=== PATIENT | female | born 1965 | race Caucasian/White ===

== ENCOUNTER 2015-12-08 17:25 | Outpatient (RCR) | payer BC ==
[2015-12-08 18:09] VITALS: BP 141/66
[2015-12-08] MEDS ORDERED: COPAXONE40 MG/ML SC (18:37)
[2015-12-08] MEDS ORDERED: CYANOCOBAL1000 MCG/M IM (18:37)
[2015-12-08] MEDS ORDERED: ATENOLOL50 MG PO (18:38)
[2015-12-08] MEDS ORDERED: MELOXICAM15 MG PO (18:39)
[2015-12-08] MEDS ORDERED: HCTZ/TRIAMTEREN1 CA2 PO (18:39)
[2015-12-08] MEDS ORDERED: VENLAFAXINE HYD75 MG PO (18:39)
[2015-12-08] MEDS ORDERED: SERTRALINE HYD100 MG PO (18:39)
[2015-12-08] MEDS ORDERED: TOLTERODINE TART4 MG PO (18:40)
[2015-12-08] MEDS ORDERED: NEURONTIN300 MG/CAP PO (18:40)
[2015-12-08] MEDS ORDERED: MAG-OX 400400 MG/TAB PO (18:42)
[2015-12-08] MEDS ORDERED: SV CALCIUM-MAG1 EACH PO (18:42)
[2015-12-08 20:36] VITALS: BP 137/75
[2015-12-09 17:39] VITALS: BP 151/85
[2015-12-09 20:10] VITALS: BP 141/56
[2015-12-10 14:58] VITALS: BP 135/82
[2015-12-10 17:06] VITALS: BP 126/66
== END 2016-03-07 | disposition home or self-care (01) ==
LOC: AMSURD
DX: G35 Multiple sclerosis (principal)
CPT/HCPCS: J2930; J7050

== ENCOUNTER → 2017-02-07 | Outpatient (CLI) | payer BC ==
[~2017-02-07] MED LIST: ATENOLOL50 MG PO; COPAXONE40 MG/ML SC; CYANOCOBAL1000 MCG/M IM; HCTZ/TRIAMTEREN1 CA2 PO; MAG-OX 400400 MG/TAB PO; MELOXICAM15 MG PO; NEURONTIN300 MG/CAP PO; SERTRALINE HYD100 MG PO; SV CALCIUM-MAG1 EACH PO; TOLTERODINE TART4 MG PO; VENLAFAXINE HYD75 MG PO
[2017-02-07 13:34] LABS: HEMATOCRIT 38.9 % (37.0-47.0); RED BLOOD COUNT 4.5 M/mm3 (4.10-5.30); RED CELL DISTRIBUTION WIDTH 13.2 % (11.5-14.5); WHITE BLOOD COUNT 10.4 K/mm3 (4.8-10.8)
[2017-02-07 13:53] LABS: ALBUMIN 3.9 g/dL (3.5-5.0); BUN/CREATININE RATIO 13.8 (6.0-26.0); CALCIUM 9.7 mg/dL (8.4-10.2); POTASSIUM 3.9 mmol/L (3.6-5.0); TOTAL BILIRUBIN 0.6 mg/dL (0.2-1.3); TOTAL PROTEIN 6.9 g/dL (6.3-8.2)
[2017-02-07 14:23] LABS: URINE APPEARANCE HAZY; URINE COLOR YELLOW
[2017-02-07 14:24] LABS: URINE BILIRUBIN NEGATIVE (NEGATIVE); URINE BLOOD NEGATIVE (NEGATIVE); URINE GLUCOSE NEGATIVE (NEGATIVE); URINE KETONE NEGATIVE (NEGATIVE); URINE LEUKOCYTE ESTERASE NEGATIVE (NEGATIVE); URINE NITRATE NEGATIVE (NEGATIVE); URINE PROTEIN(semi-quant) NEGATIVE (NEGATIVE); URINE UROBILINOGEN NORMAL (NORMAL); URINE WBC 0-1 /hpf (0-3)
== END ==
LOC: RAD 13:12
DX: Z85.820 Personal history of malignant melanoma of skin (principal)

== ENCOUNTER → 2017-02-16 | Outpatient (CLI) | payer BC ==
[2017-02-16 12:51] LABS: BUN/CREATININE RATIO 15.8 (6.0-26.0); CALCIUM 9.5 mg/dL (8.4-10.2)
[2017-02-16 13:07] LABS: PH-URINE 5.5 (5.0 - 8.0); URINE APPEARANCE CLEAR; URINE COLOR YELLOW
[2017-02-16 13:08] LABS: URINE BILIRUBIN NEGATIVE (NEGATIVE); URINE BLOOD TRACE (NEGATIVE); URINE GLUCOSE NEGATIVE (NEGATIVE); URINE KETONE NEGATIVE (NEGATIVE); URINE LEUKOCYTE ESTERASE NEGATIVE (NEGATIVE); URINE NITRATE NEGATIVE (NEGATIVE); URINE PROTEIN(semi-quant) NEGATIVE (NEGATIVE); URINE UROBILINOGEN NORMAL (NORMAL); URINE WBC 0-1 /hpf (0-3)
[2017-02-16 23:59] LABS: CREATININE OTHER SOURCE 116 mg/dL (())
== END ==
LOC: LAB 12:19
PROVIDERS: Family Medicine
DX: R35.8 Other polyuria (principal); J01.90 Acute sinusitis, unspecified; I10 Essential (primary) hypertension; R89.9 Unspecified abnormal finding in specimens from other organs, systems and tissues; C43.9 Malignant melanoma of skin, unspecified

== ENCOUNTER → 2017-03-19 | Outpatient (CLI) | payer BC ==
[2017-03-19 09:08] LABS: STREP SCREEN NEGATIVE (NEGATIVE)
== END ==
LOC: LAB 08:40
PROVIDERS: Nurse Practitioner Family
DX: R05 Cough (principal); J02.8 Acute pharyngitis due to other specified organisms; Z88.1 Allergy status to other antibiotic agents

== ENCOUNTER 2017-04-04 09:55 | Emergency (ER) | payer BC ==
[~2017-04-04] VITALS: Ht 180.3 cm; Wt 102.3 kg
[2017-04-04 10:30] LABS: BASO # 0.1 (0.02-0.10); EOS # 0.6 (0.04-0.40); HEMATOCRIT 43.6 % (37.0-47.0); HEMOGLOBIN 14.4 g/dL (12.5-16.0); LYMPH# 2.5 (1.50-4.00); MEAN CELL VOLUME 87 fl (78-100); MEAN CORPUSCULAR HEMOGLOBIN 29 pg (27-31); MEAN CORPUSCULAR HGB CONC 33 g/dL (33-37); MEAN PLATELET VOLUME 10.1 fl (7.4-10.4); MONO # 1.3 (0.20-0.80); NEU # 9.6 (1.40-6.50); PLATELET COUNT 374 K/mm3 (130-400); RED BLOOD COUNT 5.03 M/mm3 (4.10-5.30); RED CELL DISTRIBUTION WIDTH 13.3 % (11.5-14.5); WHITE BLOOD COUNT 14.1 K/mm3 (4.8-10.8)
[2017-04-04 10:31] LABS: ALBUMIN 4.3 g/dL (3.5-5.0); BUN/CREATININE RATIO 13.3 (6.0-26.0); CALCIUM 9.7 mg/dL (8.4-10.2); POTASSIUM 3.9 mmol/L (3.6-5.0); TOTAL BILIRUBIN 0.6 mg/dL (0.2-1.3)
[2017-04-04 10:38] LABS: PH-URINE 6.5 (5.0 - 8.0); TOTAL PROTEIN 7.6 g/dL (6.3-8.2); URINE APPEARANCE HAZY; URINE BILIRUBIN NEGATIVE (NEGATIVE); URINE BLOOD NEGATIVE (NEGATIVE); URINE COLOR YELLOW; URINE GLUCOSE NEGATIVE (NEGATIVE); URINE KETONE NEGATIVE (NEGATIVE); URINE LEUKOCYTE ESTERASE NEGATIVE (NEGATIVE); URINE NITRATE NEGATIVE (NEGATIVE); URINE PROTEIN(semi-quant) NEGATIVE (NEGATIVE); URINE UROBILINOGEN NORMAL (NORMAL)
[2017-04-04 10:39] LABS: URINE MUCUS PRESENT (NOT PRESENT)
[2017-04-04] MEDS ORDERED: MELOXICAM15 MG PO (10:45)
[2017-04-04] MEDS ORDERED: MAXZIDE-25MG TA1 TAB PO (10:45)
[2017-04-04] MEDS ORDERED: ESTRADIOL2 M1 PO (10:45)
[2017-04-04] MEDS ORDERED: ROBAXIN500 MG PO (12:12)
[2017-04-04] MEDS ORDERED: NORCO 325 MG-51 TA1 PO (12:12)
[2017-04-04 12:24] VITALS: BP 171/77
== END 2017-04-04 12:20 | disposition home or self-care (01) ==
LOC: ED 09:55
PROVIDERS: Physician Assistant
DX: R10.12 Left upper quadrant pain (principal); G35 Multiple sclerosis; M54.6 Pain in thoracic spine; I10 Essential (primary) hypertension; Z85.820 Personal history of malignant melanoma of skin; Z87.442 Personal history of urinary calculi; Z90.49 Acquired absence of other specified parts of digestive tract; E66.9 Obesity, unspecified; Z68.31 Body mass index [BMI] 31.0-31.9, adult
CPT/HCPCS: J1885; J2405; J3010; J7030; Q9967

== ENCOUNTER → 2017-10-24 | Outpatient (CLI) | payer OTHER ==
[~2017-10-24] MED LIST changes: +ESTRADIOL2 M1 PO; +MAXZIDE-25MG TA1 TAB PO; +NORCO 325 MG-51 TA1 PO; +ROBAXIN500 MG PO
== END ==
LOC: MAMMO 15:58
DX: Z12.31 Encounter for screening mammogram for malignant neoplasm of breast (principal)

== ENCOUNTER → 2017-11-12 | Outpatient (CLI) | payer OTHER | LOC: MAMMO 06:57 | DX: N60.02 Solitary cyst of left breast (principal); Z98.890 Other specified postprocedural states ==

== ENCOUNTER → 2018-08-21 | Outpatient (CLI) | payer BC ==
[2018-08-21 10:39] LABS: HEMATOCRIT 43.1 % (37.0-47.0); HEMOGLOBIN 14.2 g/dL (12.5-16.0); RED BLOOD COUNT 5.03 M/mm3 (4.10-5.30); RED CELL DISTRIBUTION WIDTH 12.8 % (11.5-14.5); WHITE BLOOD COUNT 12.1 K/mm3 (4.8-10.8)
[2018-08-21 10:48] LABS: POTASSIUM 3.7 mmol/L (3.5-5.1); SODIUM 140 mmol/L (136-145)
[2018-08-21 10:49] LABS: CALCIUM 9.7 mg/dL (8.3-10.5)
[2018-08-21 10:50] LABS: GLUCOSE 132 mg/dL (65-105); TOTAL PROTEIN 7.3 g/dL (6.4-8.3)
[2018-08-21 10:51] LABS: CARBON DIOXIDE 27 mmol/L (22-29)
[2018-08-21 10:52] LABS: TOTAL BILIRUBIN 0.5 mg/dL (0.2-1.2)
[2018-08-21 10:55] LABS: AST-SGOT 13 U/L (5-34)
[2018-08-21 10:57] LABS: ALT/SGPT 20 U/L (0-55)
== END ==
LOC: LAB 10:21
PROVIDERS: Psychiatry & Neurology Neurology
DX: G35 Multiple sclerosis (principal); E55.9 Vitamin D deficiency, unspecified; G89.29 Other chronic pain; M26.69 Other specified disorders of temporomandibular joint

== ENCOUNTER → 2018-09-30 | Outpatient (CLI) | payer BC | LOC: MAMMO 09-25 16:00 | DX: Z12.31 Encounter for screening mammogram for malignant neoplasm of breast (principal); R92.1 Mammographic calcification found on diagnostic imaging of breast ==

== ENCOUNTER → 2018-11-27 | Outpatient (CLI) | payer BC ==
[2018-11-27 15:30] LABS: POTASSIUM 3.6 mmol/L (3.5-5.1)
[2018-11-27 15:31] LABS: CALCIUM 9.5 mg/dL (8.3-10.5)
[2018-11-27 15:35] LABS: TOTAL BILIRUBIN 0.8 mg/dL (0.2-1.2)
== END ==
LOC: LAB 14:57
PROVIDERS: Family Medicine
DX: Z00.00 Encounter for general adult medical examination without abnormal findings (principal); Z13.6 Encounter for screening for cardiovascular disorders; S91.101A Unspecified open wound of right great toe without damage to nail, initial encounter; G35 Multiple sclerosis; I10 Essential (primary) hypertension; R73.9 Hyperglycemia, unspecified; K29.70 Gastritis, unspecified, without bleeding; L97.519 Non-pressure chronic ulcer of other part of right foot with unspecified severity; M21.611 Bunion of right foot; C43.9 Malignant melanoma of skin, unspecified; R60.0 Localized edema

== ENCOUNTER → 2019-02-13 | Outpatient (CLI) | payer BC ==
[2019-02-13 19:35] LABS: BASO # 0.1 (0.02-0.10); EOS # 0.3 (0.04-0.40); HEMATOCRIT 41.2 % (37.0-47.0); HEMOGLOBIN 13.6 g/dL (12.5-16.0); LYMPH# 2.1 (1.50-4.00); MEAN CELL VOLUME 88 fl (78-100); MEAN CORPUSCULAR HEMOGLOBIN 29 pg (27-31); MEAN CORPUSCULAR HGB CONC 33 g/dL (33-37); MEAN PLATELET VOLUME 10.1 fl (7.4-10.4); NEU # 6.8 (1.40-6.50); PLATELET COUNT 306 K/mm3 (130-400); RED BLOOD COUNT 4.67 M/mm3 (4.10-5.30); RED CELL DISTRIBUTION WIDTH 12.8 % (11.5-14.5); WHITE BLOOD COUNT 10.4 K/mm3 (4.8-10.8)
[2019-02-13 19:45] LABS: POTASSIUM 3.2 mmol/L (3.5-5.1)
[2019-02-13 19:46] LABS: CALCIUM 9.6 mg/dL (8.3-10.5)
[2019-02-13 19:48] LABS: TOTAL PROTEIN 7.3 g/dL (6.4-8.3)
[2019-02-13 19:49] LABS: TOTAL BILIRUBIN 0.4 mg/dL (0.2-1.2)
== END | disposition still patient (30) ==
LOC: LAB 19:18
PROVIDERS: Nurse Practitioner
DX: L08.9 Local infection of the skin and subcutaneous tissue, unspecified (principal)

== ENCOUNTER → 2019-05-27 | Outpatient (CLI) | payer BC | LOC: LAB 17:17 | DX: I10 Essential (primary) hypertension (principal); G35 Multiple sclerosis; E66.9 Obesity, unspecified; R19.7 Diarrhea, unspecified ==

== ENCOUNTER 2019-09-24 14:14 | Inpatient (IN) | payer BC ==
[~2019-09-24] VITALS: Ht 177.8 cm; Wt 109.1 kg
[2019-09-24] MEDS ORDERED: SIMVASTATIN10 M1 PO (14:42)
[2019-09-24] MEDS ORDERED: AUBAGIO14 MG PO (14:44)
[2019-09-24] MEDS ORDERED: TOLTERODINE TART4 MG PO (14:44)
[2019-09-24] MEDS ORDERED: NEURONTIN300 M1 PO (14:45)
[2019-09-24] MEDS ORDERED: MUPIROCIN CALCIUM2% TP (14:47)
[2019-09-24 15:25] LABS: BASO # 0.1 (0.02-0.10); EOS # 0.2 (0.04-0.40); HEMATOCRIT 40.2 % (37.0-47.0); HEMOGLOBIN 13.2 g/dL (12.5-16.0); LYMPH# 2.1 (1.50-4.00); MEAN CELL VOLUME 86 fl (78-100); MEAN CORPUSCULAR HEMOGLOBIN 28 pg (27-31); MEAN CORPUSCULAR HGB CONC 33 g/dL (33-37); MONO # 1.1 (0.20-0.80); NEU # 7.5 (1.40-6.50); PLATELET COUNT 313 K/mm3 (130-400); RED BLOOD COUNT 4.67 M/mm3 (4.10-5.30); RED CELL DISTRIBUTION WIDTH 13.2 % (11.5-14.5)
[2019-09-24 15:33] LABS: URINE APPEARANCE CLEAR; URINE BILIRUBIN NEGATIVE (NEGATIVE); URINE BLOOD NEGATIVE (NEGATIVE); URINE COLOR YELLOW; URINE GLUCOSE NEGATIVE (NEGATIVE); URINE KETONE NEGATIVE (NEGATIVE); URINE LEUKOCYTE ESTERASE NEGATIVE (NEGATIVE); URINE MUCUS PRESENT (NOT PRESENT); URINE NITRATE NEGATIVE (NEGATIVE); URINE PROTEIN(semi-quant) NEGATIVE (NEGATIVE); URINE UROBILINOGEN NORMAL (NORMAL)
[2019-09-24 15:34] LABS: POTASSIUM 3.8 mmol/L (3.5-5.1); SODIUM 140 mmol/L (136-145)
[2019-09-24 15:36] LABS: CALCIUM 9.8 mg/dL (8.3-10.5)
[2019-09-24 15:37] LABS: GLUCOSE 88 mg/dL (65-105); TOTAL PROTEIN 7.3 g/dL (6.4-8.3)
[2019-09-24 15:38] LABS: CARBON DIOXIDE 26 mmol/L (22-29)
[2019-09-24 15:39] LABS: TOTAL BILIRUBIN 0.4 mg/dL (0.2-1.2)
[2019-09-24 15:42] LABS: AST-SGOT 13 U/L (5-34)
[2019-09-24 15:43] LABS: ALT/SGPT 14 U/L (0-55)
[2019-09-24 15:51] LABS: TROPONIN-I < 0.03 ng/mL (<0.030)
[2019-09-24 17:36] VITALS: BP 139/89
[2019-09-24 17:50] VITALS: BP 139/89
[2019-09-24 22:15] VITALS: BP 123/77
[2019-09-25 02:48] VITALS: BP 138/66
[2019-09-25 05:18] LABS: HEMOGLOBIN 12.9 g/dL (12.5-16.0); MEAN CELL VOLUME 85 fl (78-100); MEAN CORPUSCULAR HEMOGLOBIN 29 pg (27-31); MEAN CORPUSCULAR HGB CONC 34 g/dL (33-37); MEAN PLATELET VOLUME 10.3 fl (7.4-10.4); PLATELET COUNT 296 K/mm3 (130-400); RED BLOOD COUNT 4.47 M/mm3 (4.10-5.30); RED CELL DISTRIBUTION WIDTH 12.8 % (11.5-14.5); WHITE BLOOD COUNT 12.8 K/mm3 (4.8-10.8)
[2019-09-25 05:32] LABS: ALBUMIN 3.8 g/dL (3.5-5.0); POTASSIUM 3.9 mmol/L (3.5-5.1)
[2019-09-25 05:33] LABS: CALCIUM 9.4 mg/dL (8.3-10.5)
[2019-09-25 05:34] LABS: TOTAL PROTEIN 6.9 g/dL (6.4-8.3)
[2019-09-25 05:36] LABS: TOTAL BILIRUBIN 0.5 mg/dL (0.2-1.2)
[2019-09-25 05:38] LABS: LYMPHOCYTE 8 % (20-51); MONOCYTE 1 % (3-10); NEUTROPHILS 91 % (42-75)
[2019-09-25 05:45] VITALS: BP 138/70
[2019-09-25 09:10] LABS: D-DIMER 0.24 mg/L FEU (0.15-0.50)
[2019-09-25 09:43] VITALS: BP 120/85
[2019-09-25 14:15] VITALS: BP 130/70
[2019-09-25 17:26] VITALS: BP 147/77
[2019-09-25 21:48] VITALS: BP 144/77
[2019-09-26 02:30] VITALS: BP 156/69
[2019-09-26 06:16] VITALS: BP 168/87
[2019-09-26 09:43] VITALS: BP 160/85
[2019-09-26 09:50] LABS: POTASSIUM 4.1 mmol/L (3.5-5.1)
[2019-09-26 09:51] LABS: CALCIUM 9.3 mg/dL (8.3-10.5)
[2019-09-26 09:59] LABS: HEMATOCRIT 40.3 % (37.0-47.0); HEMOGLOBIN 13.1 g/dL (12.5-16.0); MEAN CELL VOLUME 87 fl (78-100); MEAN CORPUSCULAR HEMOGLOBIN 28 pg (27-31); MEAN CORPUSCULAR HGB CONC 33 g/dL (33-37); MEAN PLATELET VOLUME 10.5 fl (7.4-10.4); PLATELET COUNT 324 K/mm3 (130-400); RED BLOOD COUNT 4.65 M/mm3 (4.10-5.30); RED CELL DISTRIBUTION WIDTH 13.3 % (11.5-14.5)
[2019-09-26 10:00] LABS: WHITE BLOOD COUNT 23.9 K/mm3 (4.8-10.8)
[2019-09-26 11:24] LABS: LYMPHOCYTE 6 % (20-51); MONOCYTE 3 % (3-10); NEUTROPHILS 91 % (42-75)
[2019-09-26 14:33] VITALS: BP 135/73
[2019-09-26 18:24] VITALS: BP 147/81
[2019-09-26 21:07] VITALS: BP 150/84
[2019-09-27 02:07] VITALS: BP 115/57
[2019-09-27 05:59] VITALS: BP 117/56
[2019-09-27 09:09] VITALS: BP 133/83
[2019-09-27 14:08] VITALS: BP 134/85
[2019-09-27 17:26] VITALS: BP 117/65
[2019-09-27 22:42] VITALS: BP 119/71
[2019-09-28 02:00] VITALS: BP 150/75
[2019-09-28 06:06] VITALS: BP 154/78
[2019-09-28 07:23] LABS: POTASSIUM 4.4 mmol/L (3.5-5.1)
[2019-09-28 07:25] LABS: CALCIUM 8.3 mg/dL (8.3-10.5)
[2019-09-28 10:20] VITALS: BP 177/83
[2019-09-28 14:12] VITALS: BP 137/80
[2019-09-28 18:23] VITALS: BP 129/76
[2019-09-28 21:29] VITALS: BP 150/84
[2019-09-29] VITALS (7 sets, daily range): BP systolic 119–170; BP diastolic 61–90
[2019-09-29 06:40] LABS: HEMATOCRIT 41.3 % (37.0-47.0); HEMOGLOBIN 13.5 g/dL (12.5-16.0); MEAN CELL VOLUME 86 fl (78-100); MEAN CORPUSCULAR HEMOGLOBIN 28 pg (27-31); MEAN CORPUSCULAR HGB CONC 33 g/dL (33-37); MEAN PLATELET VOLUME 10.5 fl (7.4-10.4); PLATELET COUNT 334 K/mm3 (130-400); RED CELL DISTRIBUTION WIDTH 13.2 % (11.5-14.5); WHITE BLOOD COUNT 17.1 K/mm3 (4.8-10.8)
[2019-09-29 07:16] LABS: ALBUMIN 3.6 g/dL (3.5-5.0)
[2019-09-29 07:17] LABS: POTASSIUM 4.3 mmol/L (3.5-5.1)
[2019-09-29 07:19] LABS: TOTAL PROTEIN 6.5 g/dL (6.4-8.3)
[2019-09-29 07:21] LABS: NEUTROPHILS 82 % (42-75); TOTAL BILIRUBIN 0.4 mg/dL (0.2-1.2)
[2019-09-29 07:22] LABS: LYMPHOCYTE 13 % (20-51); METAMYELOCYTE 1 % (0-0); MONOCYTE 3 % (3-10); MYELOCYTE 1 % (0-0)
[2019-09-30 02:21] VITALS: BP 130/73
[2019-09-30 06:07] VITALS: BP 136/78
[2019-09-30 10:13] VITALS: BP 156/72
== END 2019-09-30 10:25 | disposition home or self-care (01) | DRG 60 ==
LOC: ED 14:14 → MED/SURG 16:12
PROVIDERS: Family Medicine; Internal Medicine; Nurse Practitioner Primary Care; ADMIT Family Medicine
DX: G35 Multiple sclerosis (principal); G62.9 Polyneuropathy, unspecified; I10 Essential (primary) hypertension; R07.9 Chest pain, unspecified; M19.90 Unspecified osteoarthritis, unspecified site; R73.9 Hyperglycemia, unspecified; N28.9 Disorder of kidney and ureter, unspecified; K44.9 Diaphragmatic hernia without obstruction or gangrene; D72.829 Elevated white blood cell count, unspecified; Z20.828 Contact with and (suspected) exposure to other viral communicable diseases; Z87.891 Personal history of nicotine dependence
CPT/HCPCS: J1200; J1650; J1815; J1885; J2405; J2550; J2930; J7030; J7050

== ENCOUNTER → 2019-10-08 | Outpatient (CLI) | payer BC ==
[2019-09-30 10:13] VITALS: BP 156/72
[~2019-10-08] MED LIST changes: +AUBAGIO14 MG PO; +MUPIROCIN CALCIUM2% TP; +NEURONTIN300 M1 PO; +SIMVASTATIN10 M1 PO
[2019-10-08 14:33] LABS: HEMATOCRIT 41.1 % (37.0-47.0); HEMOGLOBIN 13.6 g/dL (12.5-16.0); MEAN PLATELET VOLUME 9.9 fl (7.4-10.4); RED BLOOD COUNT 4.79 M/mm3 (4.10-5.30); RED CELL DISTRIBUTION WIDTH 13.7 % (11.5-14.5); WHITE BLOOD COUNT 13.3 K/mm3 (4.8-10.8)
[2019-10-08 14:45] LABS: ALBUMIN 3.9 g/dL (3.5-5.0); POTASSIUM 3.9 mmol/L (3.5-5.1)
[2019-10-08 14:46] LABS: CALCIUM 9.3 mg/dL (8.3-10.5)
[2019-10-08 14:47] LABS: TOTAL PROTEIN 6.7 g/dL (6.4-8.3)
[2019-10-08 14:49] LABS: TOTAL BILIRUBIN 0.6 mg/dL (0.2-1.2)
[2019-10-09 00:26] LABS: FOLATE (FOLIC ACID) 14.8 ng/mL (7.0-31.4)
[2019-10-13 11:39] LABS: VITAMIN E 13.7 mg/L (())
== END ==
LOC: LAB 14:00
PROVIDERS: Psychiatry & Neurology Neurology
DX: G35 Multiple sclerosis (principal); B02.9 Zoster without complications

== ENCOUNTER → 2019-10-14 | Outpatient (CLI) | payer OTHER ==
[2019-09-30 10:13] VITALS: BP 156/72
== END ==
LOC: RAD 18:35
DX: M24.874 Other specific joint derangements of right foot, not elsewhere classified (principal); M20.11 Hallux valgus (acquired), right foot

== ENCOUNTER → 2019-10-15 | Outpatient (CLI) | payer OTHER ==
[2019-09-30 10:13] VITALS: BP 156/72
[2019-10-15 10:46] LABS: EOS # 0.2 (0.04-0.40); HEMATOCRIT 38.3 % (37.0-47.0); HEMOGLOBIN 12.5 g/dL (12.5-16.0); LYMPH# 1.9 (1.50-4.00); MEAN CELL VOLUME 87 fl (78-100); MEAN CORPUSCULAR HEMOGLOBIN 29 pg (27-31); MEAN CORPUSCULAR HGB CONC 33 g/dL (33-37); MEAN PLATELET VOLUME 9.4 fl (7.4-10.4); MONO # 0.7 (0.20-0.80); PLATELET COUNT 196 K/mm3 (130-400); RED BLOOD COUNT 4.38 M/mm3 (4.10-5.30); RED CELL DISTRIBUTION WIDTH 13.7 % (11.5-14.5); WHITE BLOOD COUNT 7.8 K/mm3 (4.8-10.8)
[2019-10-15 12:05] LABS: ERYTHROCYTE SEDIMENTATION RATE 28 mm/hr (0-30)
== END ==
LOC: RAD 10:15
PROVIDERS: Family Medicine
DX: M21.611 Bunion of right foot (principal)

== ENCOUNTER → 2020-03-05 | Outpatient (CLI) | payer BC ==
[2020-03-05 11:23] LABS: BASO # 0.1 (0.02-0.10); EOS # 0.3 (0.04-0.40); EOS % 3.1 % (1.0-5.0); HEMATOCRIT 41.7 % (37.0-47.0); HEMOGLOBIN 13.7 g/dL (12.5-16.0); LYMPH# 2.7 (1.50-4.00); MEAN CELL VOLUME 87 fl (78-100); MEAN CORPUSCULAR HEMOGLOBIN 29 pg (27-31); MEAN CORPUSCULAR HGB CONC 33 g/dL (33-37); MEAN PLATELET VOLUME 9.9 fl (7.4-10.4); MONO # 1.2 (0.20-0.80); NEU # 6.7 (1.40-6.50); PLATELET COUNT 303 K/mm3 (130-400); RED BLOOD COUNT 4.81 M/mm3 (4.10-5.30); RED CELL DISTRIBUTION WIDTH 13.2 % (11.5-14.5)
[2020-03-05 11:27] LABS: PROTHROMBIN TIME 9.4 SECONDS (9.0-12.0)
[2020-03-05 11:47] LABS: URINE APPEARANCE CLOUDY; URINE BILIRUBIN NEGATIVE (NEGATIVE); URINE BLOOD NEGATIVE (NEGATIVE); URINE COLOR YELLOW; URINE GLUCOSE NEGATIVE (NEGATIVE); URINE KETONE NEGATIVE (NEGATIVE); URINE LEUKOCYTE ESTERASE NEGATIVE (NEGATIVE); URINE NITRATE NEGATIVE (NEGATIVE); URINE PROTEIN(semi-quant) TRACE mg/dL (NEGATIVE); URINE UROBILINOGEN NORMAL (NORMAL)
== END ==
LOC: LAB 10:59
PROVIDERS: Family Medicine
DX: Z01.818 Encounter for other preprocedural examination (principal)

== ENCOUNTER → 2020-03-15 | Outpatient (CLI) | payer BC ==
[2020-03-15 12:30] LABS: URINE APPEARANCE CLOUDY; URINE BILIRUBIN NEGATIVE (NEGATIVE); URINE BLOOD NEGATIVE (NEGATIVE); URINE COLOR YELLOW; URINE GLUCOSE NEGATIVE (NEGATIVE); URINE KETONE NEGATIVE (NEGATIVE); URINE LEUKOCYTE ESTERASE NEGATIVE (NEGATIVE); URINE NITRATE NEGATIVE (NEGATIVE); URINE PROTEIN(semi-quant) NEGATIVE (NEGATIVE); URINE UROBILINOGEN NORMAL (NORMAL)
== END ==
LOC: LAB 11:38
PROVIDERS: Orthopaedic Surgery
DX: Z01.818 Encounter for other preprocedural examination (principal)

== ENCOUNTER 2020-05-26 10:44 | Outpatient (RCR) | payer BC | END 2020-08-24 | disposition home or self-care (01) | LOC: PT | DX: S92.331D Displaced fracture of third metatarsal bone, right foot, subsequent encounter for fracture with routine healing (principal) ==

== ENCOUNTER → 2020-06-10 | Outpatient (CLI) | payer BC ==
[2020-06-10 08:21] LABS: CALCIUM 9.3 mg/dL (8.3-10.5)
[2020-06-10 08:23] LABS: TOTAL PROTEIN 6.6 g/dL (6.4-8.3)
[2020-06-10 08:24] LABS: TOTAL BILIRUBIN 0.5 mg/dL (0.2-1.2)
== END ==
LOC: LAB 07:54
PROVIDERS: Family Medicine
DX: Z13.1 Encounter for screening for diabetes mellitus (principal); I10 Essential (primary) hypertension; E78.00 Pure hypercholesterolemia, unspecified

== ENCOUNTER → 2020-10-06 | Outpatient (CLI) | payer BC ==
[2020-10-06 07:58] LABS: BASO # 0.07 (0.02-0.10); EOS # 0.26 (0.04-0.40); EOS % 2.9 % (1.0-5.0); HEMATOCRIT 42.2 % (37.0-47.0); HEMOGLOBIN 14.3 g/dL (12.5-16.0); LYMPH# 2.04 (1.50-4.00); MEAN CELL VOLUME 89 fl (78-100); MEAN CORPUSCULAR HEMOGLOBIN 30 pg (27-31); MEAN CORPUSCULAR HGB CONC 34 g/dL (33-37); MEAN PLATELET VOLUME 9.8 fl (7.4-10.4); MONO # 0.75 (0.20-0.80); NEU # 5.71 (1.40-6.50); PLATELET COUNT 314 K/mm3 (130-400); RED BLOOD COUNT 4.76 M/mm3 (4.10-5.30); RED CELL DISTRIBUTION WIDTH 12.2 % (11.5-14.5); WHITE BLOOD COUNT 8.8 K/mm3 (4.8-10.8)
[2020-10-06 08:06] LABS: PROTHROMBIN TIME 9.8 SECONDS (9.0-12.0)
[2020-10-06 08:34] LABS: POTASSIUM 3.5 mmol/L (3.5-5.1)
[2020-10-06 08:35] LABS: CALCIUM 10.1 mg/dL (8.3-10.5)
[2020-10-06 08:36] LABS: TOTAL PROTEIN 6.9 g/dL (6.4-8.3)
[2020-10-06 08:37] LABS: URINE APPEARANCE CLOUDY; URINE COLOR YELLOW
[2020-10-06 08:38] LABS: TOTAL BILIRUBIN 0.5 mg/dL (0.2-1.2); URINE BILIRUBIN NEGATIVE (NEGATIVE); URINE BLOOD NEGATIVE (NEGATIVE); URINE GLUCOSE NEGATIVE (NEGATIVE); URINE KETONE NEGATIVE (NEGATIVE); URINE LEUKOCYTE ESTERASE NEGATIVE (NEGATIVE); URINE MUCUS PRESENT (NOT PRESENT); URINE NITRATE NEGATIVE (NEGATIVE); URINE PROTEIN(semi-quant) TRACE mg/dL (NEGATIVE); URINE UROBILINOGEN NORMAL (NORMAL)
== END ==
LOC: LAB 07:34
PROVIDERS: Family Medicine
DX: Z01.818 Encounter for other preprocedural examination (principal); M17.12 Unilateral primary osteoarthritis, left knee

== ENCOUNTER → 2020-10-07 | Outpatient (CLI) | payer BC ==
[2020-10-07 15:42] LABS: URINE APPEARANCE CLEAR; URINE COLOR YELLOW
[2020-10-07 15:43] LABS: URINE BILIRUBIN NEGATIVE (NEGATIVE); URINE BLOOD NEGATIVE (NEGATIVE); URINE GLUCOSE NEGATIVE (NEGATIVE); URINE KETONE NEGATIVE (NEGATIVE); URINE LEUKOCYTE ESTERASE NEGATIVE (NEGATIVE); URINE MUCUS PRESENT (NOT PRESENT); URINE NITRATE NEGATIVE (NEGATIVE); URINE PROTEIN(semi-quant) TRACE mg/dL (NEGATIVE); URINE UROBILINOGEN NORMAL (NORMAL)
== END ==
LOC: LAB 15:20
PROVIDERS: Family Medicine
DX: Z01.812 Encounter for preprocedural laboratory examination (principal); M17.9 Osteoarthritis of knee, unspecified; M25.762 Osteophyte, left knee; M23.004 Cystic meniscus, unspecified medial meniscus, left knee

== ENCOUNTER 2021-02-22 11:10 | Emergency (ER) | payer BC ==
[~2021-02-22] VITALS: Ht 177.8 cm; Wt 109.1 kg
[2021-02-22 11:33] LABS: BASO # 0.02 K/mm3 (0.02-0.10); HEMATOCRIT 43.6 % (37.0-47.0); HEMOGLOBIN 14.9 g/dL (12.5-16.0); LYMPH# 0.76 K/mm3 (1.50-4.00); MEAN CELL VOLUME 86 fl (78-100); MEAN CORPUSCULAR HEMOGLOBIN 29 pg (27-31); MEAN CORPUSCULAR HGB CONC 34 g/dL (33-37); MEAN PLATELET VOLUME 10.4 fl (7.4-10.4); MONO # 0.42 K/mm3 (0.20-0.80); NEU # 3.18 K/mm3 (1.40-6.50); PLATELET COUNT 140 K/mm3 (130-400); RED BLOOD COUNT 5.07 M/mm3 (4.10-5.30); RED CELL DISTRIBUTION WIDTH 11.8 % (11.5-14.5); WHITE BLOOD COUNT 4.4 K/mm3 (4.8-10.8)
[2021-02-22 11:41] LABS: ALBUMIN 4.2 g/dL (3.5-5.0); POTASSIUM 3.1 mmol/L (3.5-5.1)
[2021-02-22 11:43] LABS: CALCIUM 9.6 mg/dL (8.3-10.5)
[2021-02-22 11:46] LABS: TOTAL BILIRUBIN 0.6 mg/dL (0.2-1.2)
[2021-02-22 15:01] LABS: URINE APPEARANCE CLEAR; URINE BILIRUBIN NEGATIVE (NEGATIVE); URINE BLOOD NEGATIVE (NEGATIVE); URINE COLOR YELLOW; URINE GLUCOSE NEGATIVE (NEGATIVE); URINE KETONE 1+ (NEGATIVE); URINE LEUKOCYTE ESTERASE NEGATIVE (NEGATIVE); URINE NITRATE NEGATIVE (NEGATIVE); URINE PROTEIN(semi-quant) 1+ (NEGATIVE); URINE UROBILINOGEN NORMAL (NORMAL)
[2021-02-22] MEDS ORDERED: MORGIDOX 2X100100 MG PO (15:33)
[2021-02-22] MEDS ORDERED: POTASSIUM CHLO20 ME4 PO (15:33)
[2021-02-22] MEDS ORDERED: RT ALBUTEROL CC18 GM IH (15:33)
[2021-02-22] MEDS ORDERED: PHENERGAN 25 TA25 MG PO (15:34)
[2021-02-22 15:55] VITALS: BP 143/77
== END 2021-02-22 15:58 | disposition home or self-care (01) ==
LOC: ED 11:10
PROVIDERS: Physician Assistant
DX: U07.1 COVID-19 (principal); I10 Essential (primary) hypertension; E78.00 Pure hypercholesterolemia, unspecified; E66.9 Obesity, unspecified; Z87.891 Personal history of nicotine dependence; Z68.34 Body mass index [BMI] 34.0-34.9, adult; Z79.899 Other long term (current) drug therapy
CPT/HCPCS: J1885; J2405; J2550; J3480; J7030

== ENCOUNTER → 2022-01-05 | Outpatient (CLI) | payer BC ==
[~2022-01-05] MED LIST changes: +MORGIDOX 2X100100 MG PO; +PHENERGAN 25 TA25 MG PO; +POTASSIUM CHLO20 ME4 PO; +RT ALBUTEROL CC18 GM IH
== END ==
LOC: MAMMO 15:55
DX: Z12.31 Encounter for screening mammogram for malignant neoplasm of breast (principal); Z00.00 Encounter for general adult medical examination without abnormal findings

== ENCOUNTER 2023-10-26 11:39 | Observation (INO) | payer BC ==
[~2023-10-26] VITALS: Ht 177.8 cm; Wt 119.8 kg
[2023-10-26 11:49] LABS: BASO # 0.03 K/mm3 (0.02-0.10); EOS # 0.24 K/mm3 (0.04-0.40); EOS % 2.3 % (1.0-5.0); HEMATOCRIT 44.3 % (37.0-47.0); HEMOGLOBIN 15.1 g/dL (12.5-16.0); LYMPH# 2.08 K/mm3 (1.50-4.00); MEAN CELL VOLUME 88 fl (78-100); MEAN CORPUSCULAR HEMOGLOBIN 30 pg (27-31); MEAN CORPUSCULAR HGB CONC 34 g/dL (33-37); MEAN PLATELET VOLUME 9.8 fl (7.4-10.4); MONO # 0.81 K/mm3 (0.20-0.80); NEU # 7.09 K/mm3 (1.40-6.50); PLATELET COUNT 317 K/mm3 (130-400); RED BLOOD COUNT 5.01 M/mm3 (4.10-5.30); RED CELL DISTRIBUTION WIDTH 12.2 % (11.5-14.5); WHITE BLOOD COUNT 10.3 K/mm3 (4.8-10.8)
[2023-10-26 11:55] LABS: ALBUMIN 4.2 g/dL (3.5-5.0)
[2023-10-26 11:57] LABS: CALCIUM 10.6 mg/dL (8.3-10.5)
[2023-10-26 11:58] LABS: TOTAL PROTEIN 7.1 g/dL (6.4-8.3)
[2023-10-26 12:00] LABS: TOTAL BILIRUBIN 0.6 mg/dL (0.2-1.2)
[2023-10-26 12:15] VITALS: BP 125/82
[2023-10-26] MEDS ORDERED: D5LR 1,000 ML IV SCH (12:30)
[2023-10-26] MEDS ORDERED: Ondansetron 4 MG/2 ML VIAL IV ONE (12:45)
--- NOTE | 2023-10-26 15:40 | NUR ---
Pt admits to room 206 Obs after failing OP. Pt arrives via WC. Is Ox4, VSS, reports "waves" of epigastric pain and N/V/D x 1 week. Initially states that she has been unable to keep food or liquid down since last Sunday but admits that she has kept 1/2 piece of toast down since this morning. Has been sipping on water since getting to room. Says that she has not had any of her daily PO meds since last Sunday. Is noted to be tearful, pt relates this to not having antidepressants. IV to LAC. Placed telemetry and started monitoring 1630.
[2023-10-26] MEDS ORDERED: MODAFINIL200 MG PO (15:58)
[2023-10-26] MEDS ORDERED: VITAMIN D21250 MCG PO (15:59)
[2023-10-26] MEDS ORDERED: DULOXETINE60 MG PO (16:00)
[2023-10-26] MEDS ORDERED: Ondansetron 4 MG/2 ML VIAL IV PRN (16:00)
[2023-10-26] MEDS ORDERED: Acetaminophen 325 MG TAB PO PRN (16:00)
[2023-10-26] MEDS ORDERED: OMEPRAZOLE40 MG PO (16:02)
[2023-10-26] MEDS ORDERED: ACIDOPHILUS1 EAC3 PO (16:04)
[2023-10-26] MEDS ORDERED: Glucagon 1 MG VIAL IM PRN (16:30)
[2023-10-26] MEDS ORDERED: Loperamide 2 MG CAP PO PRN (16:30)
[2023-10-26] MEDS ORDERED: Dextrose 50% Water 25 GM/50 ML SYRINGE IV PRN (16:30)
[2023-10-26] MEDS ORDERED: Dextrose (Glucose) 15 GM (4 x 3.75 GM) Chewable TAB PACK PO PRN (16:30)
[2023-10-26] MEDS ORDERED: Pantoprazole 40 MG in NS 10 ML IV SCH (16:32)
[2023-10-26 16:59] LABS: URINE APPEARANCE SLIGHTLY CLOUDY (CLEAR); URINE COLOR YELLOW (YELLOW)
[2023-10-26 17:00] LABS: PH-URINE 5.5 (5.0 - 8.0); URINE BILIRUBIN 1+ (NEGATIVE); URINE BLOOD NEGATIVE (NEGATIVE); URINE GLUCOSE TRACE (NEGATIVE); URINE KETONE NEGATIVE (NEGATIVE); URINE LEUKOCYTE ESTERASE NEGATIVE (NEGATIVE); URINE NITRATE NEGATIVE (NEGATIVE); URINE PROTEIN(semi-quant) NEGATIVE (NEGATIVE)
[2023-10-26] MEDS ORDERED: Insulin Aspart (NovoLOG) SQ SCH (17:00)
[2023-10-26 17:10] VITALS: BP 135/83
[2023-10-26 17:12] LABS: URINE MUCUS PRESENT (NOT PRESENT); URINE WBC 0-1 /hpf (0-3)
--- NOTE | 2023-10-26 19:00 | NUR ---
Report received from Shala BECK.
--- NOTE | 2023-10-26 20:30 | NUR ---
Patient resting in bed. Sits up on side of bed without problems. BP 159/85 and HS med reviewed and takes after having snack of WALT donis. See assessment. IVF's infuse without problems to LAC.
[2023-10-26] MEDS ORDERED: Atenolol 25 MG TAB PO SCH (21:00)
[2023-10-26 21:49] VITALS: BP 159/85
--- NOTE | 2023-10-27 01:05 | NUR ---
Patient up to the bathroom independently and voids robinson clear urine. Reports being very nauseated and zofran given SIV. Ice chips given.
[2023-10-27 01:57] VITALS: BP 117/71
--- NOTE | 2023-10-27 05:15 | NUR ---
Reports after having a bm, her nausea is better. Offered phenergan and given. Takes SF jello for snack with med.
[2023-10-27 06:06] VITALS: BP 148/80
--- NOTE | 2023-10-27 08:50 | NUR ---
Resting in chair eating breakfast. A&Ox4, RA, no c/o pain or discomfort. Clear liquid diet, tolerated it well. Plans to advance diet for lunch. No N/V/D. Swallowed pills whole with water. Indpendent with shower with minimal set up. Ambulated independently from chair to restroom and back to chair. Chair in locked position. Call light within reach.
[2023-10-27] MEDS ORDERED: DULoxetine 30 MG CAP PO SCH (09:00)
[2023-10-27] MEDS ORDERED: TRIAMTERENE PO SCH (09:00)
[2023-10-27] MEDS ORDERED: HYDROCHLOROTHIAZIDE PO SCH (09:00)
[2023-10-27] MEDS ORDERED: Meloxicam 7.5 MG TAB PO SCH (09:00)
[2023-10-27 10:00] VITALS: BP 127/78
[2023-10-27 11:39] LABS: BASO # 0.03 K/mm3 (0.02-0.10); EOS # 0.19 K/mm3 (0.04-0.40); EOS % 2.5 % (1.0-5.0); HEMATOCRIT 37.9 % (37.0-47.0); LYMPH# 1.75 K/mm3 (1.50-4.00); MEAN CELL VOLUME 88 fl (78-100); MEAN CORPUSCULAR HEMOGLOBIN 30 pg (27-31); MEAN CORPUSCULAR HGB CONC 34 g/dL (33-37); MEAN PLATELET VOLUME 9.8 fl (7.4-10.4); MONO # 0.55 K/mm3 (0.20-0.80); PLATELET COUNT 241 K/mm3 (130-400); RED BLOOD COUNT 4.29 M/mm3 (4.10-5.30); RED CELL DISTRIBUTION WIDTH 12.3 % (11.5-14.5); WHITE BLOOD COUNT 7.7 K/mm3 (4.8-10.8)
[2023-10-27 11:46] LABS: ALBUMIN 3.6 g/dL (3.5-5.0)
[2023-10-27 11:47] LABS: CALCIUM 9.4 mg/dL (8.3-10.5)
[2023-10-27 11:48] LABS: TOTAL PROTEIN 5.9 g/dL (6.4-8.3)
[2023-10-27 11:50] LABS: TOTAL BILIRUBIN 0.6 mg/dL (0.2-1.2)
== END 2023-10-27 13:30 | disposition home or self-care (01) ==
LOC: LAB 11:39 → MED/SURG 15:37
PROVIDERS: ADMIT Family Medicine
DX: R11.2 Nausea with vomiting, unspecified (principal); E86.0 Dehydration; R10.84 Generalized abdominal pain; E11.9 Type 2 diabetes mellitus without complications; I10 Essential (primary) hypertension; Z79.899 Other long term (current) drug therapy
CPT/HCPCS: G0378; G0379; J2405; J2470; J7120; J7121

== ENCOUNTER → 2024-03-07 | Outpatient (CLI) | payer OTHER ==
[~2024-03-07] MED LIST changes: +ACIDOPHILUS1 EAC3 PO; +DULOXETINE60 MG PO; +MODAFINIL200 MG PO; +OMEPRAZOLE40 MG PO; +VITAMIN D21250 MCG PO
== END ==
LOC: RAD 14:48
DX: M25.561 Pain in right knee (principal); M25.562 Pain in left knee; Z96.652 Presence of left artificial knee joint